=== PATIENT | female | born 1985 | race Caucasian/White ===

== ENCOUNTER 2021-05-26 05:33 | Inpatient (IN) | payer MEDICAID ==
[2021-05-20 12:14] LABS: ALBUMIN 3.7 G/DL (3.4-5.0); ALKALINE PHOSPHATASE 96 IU/L (46-116); BLOOD UREA NITROGEN 16 MG/DL (7-18); BUN/CREATININE RATIO 21.6 (6.6-38.0); CALCIUM 8.2 MG/DL (8.5-10.1); CHLORIDE 105 MMOL/L (99-107); CREATININE 0.74 MG/DL (0.40-0.90); PRE OP ALT 19 U/L (30-65); PRE OP ANION GAP 9 (8-16); PRE OP AST 11 U/L (10-37); PRE OP BILIRUB, TOTAL 0.3 MG/DL (0.0-1.0); PRE OP GLUCOSE 92 MG/DL (70-104); PRE OP POTASSIUM 4.3 MMOL/L (3.4-5.1); PRE OP SODIUM 141 MMOL/L (135-145); TOTAL CARBON DIOXIDE 26.7 MMOL/L (24-32); TOTAL PROTEIN 7.4 G/DL (6.4-8.2); eGFR 88 ML/MIN
[2021-05-20 12:17] LABS: BASOPHILS # (AUTO) 0.1 X10'3 (0-0.2); BASOPHILS % (AUTO) 1.6 % (0-1); EOSINOPHILS # (AUTO) 0.1 X10'3 (0-0.9); EOSINOPHILS % (AUTO) 1.4 % (0-6); LYMPHOCYTES # (AUTO) 1.6 X10'3 (1.1-4.8); LYMPHOCYTES % (AUTO) 34.4 % (21-51); MEAN CORPUSCULAR HEMOGLOBIN 20.6 PG (27.0-31.0); MEAN CORPUSCULAR HGB CONC 31.2 g/dL (33.0-36.5); MONOCYTES # (AUTO) 0.3 X10'3 (0-0.9); MONOCYTES % (AUTO) 6.7 % (2-12); NEUTROPHILS # (AUTO) 2.6 X10'3 (1.8-7.7); NEUTROPHILS % (AUTO) 55.9 % (42-75); PRE OP HEMATOCRIT 30.3 % (35.0-45.0); PRE OP PLATELET COUNT 341 X10'3 (140-440); RED BLOOD COUNT 4.59 X10'6 (4.20-5.60); RED CELL DISTRIBUTION WIDTH 21.2 % (11.5-14.5)
[2021-05-20 12:20] LABS: PRE OP HEMOGLOBIN 9.5 g/dL (12.0-16.0)
[2021-05-20 12:35] LABS: HCG SERUM QL NEGATIVE
[2021-05-20 12:42] LABS: ANISOCYTOSIS 3+; MICROCYTOSIS 2+; PLATELET ESTIMATE NORMAL
[2021-05-20 12:43] LABS: ELLIPTOCYTES 1+; POIKILOCYTOSIS 1+
[~2021-05-26] VITALS: Ht 170.2 cm; Wt 92.3 kg
[2021-05-26] VITALS (21 sets, daily range): BP systolic 102–147; BP diastolic 53–88
[~2021-05-26 05:33] MED LIST: FERR236T3 PO; MULT-1085 PO; OMEP-50 PO; ceFOXitin 2GM-NS 100mL ADDvant 100 ML IV ONE; famotidine 20mg tablet PO ONE; ringers solution, lacted 1,000 ML IV SCH
[2021-05-26] MEDS ORDERED: fentaNYL /PF 50mcg/ml 5ml ampule ONE (07:26)
[2021-05-26] MEDS ORDERED: midazolam 1 mg/ML 2ml injection ONE (07:26)
[2021-05-26] MEDS ORDERED: dexamethasone sod phosphate 4mg/ml inj. ONE (07:28)
[2021-05-26] MEDS ORDERED: LIDOcaine 2% (20mg/ml) 5ml vial ONE (07:28)
[2021-05-26] MEDS ORDERED: propofol inj 20 ML IV ONE (07:28)
[2021-05-26] MEDS ORDERED: vasoPRESSIN 20 units/ml inj. ONE (07:43)
[2021-05-26] MEDS ORDERED: rocuronium 10mg/ml inj IV ONE (07:53)
[2021-05-26] MEDS ORDERED: ondansetron/PF 4mg/2ml inj ONE (08:11)
[2021-05-26] MEDS ORDERED: ringers solution, lacted 1,000 ML IV SCH (08:50)
[2021-05-26] MEDS ORDERED: morphine 2 MG/ML inj. syringe IV PRN (08:50)
[2021-05-26] MEDS ORDERED: morphine 4 MG/ML inj SYRINge IV PRN (08:50)
[2021-05-26] MEDS ORDERED: ondansetron/PF 4mg/2ml inj IV PRN ×2 (08:50→10:40)
[2021-05-26] MEDS ORDERED: proCHLORperazine 10 MG/2 ml inj IV PRN (08:50)
[2021-05-26] MEDS ORDERED: meperidine/PF 25mg/ml syringe IV PRN ×2 (08:50)
[2021-05-26] MEDS ORDERED: CISatracurium **Bolus** 2 mg/ml inj IV PRN (09:00)
[2021-05-26] MEDS ORDERED: meperidine/PF 25mg/ml syringe ONE (09:58)
[2021-05-26] MEDS ORDERED: acetaminophen 1,000mg/100ml IV 100 ML IV ONE (10:16)
[2021-05-26] MEDS ORDERED: oxyCODONE/APAP 5-325mg tablet PO PRN ×2 (10:40)
[2021-05-26] MEDS: ringers solution, lacted 1,000 ML IV SCH ×2 (10:40→23:56)
[2021-05-26] MEDS ORDERED: CADD PCA waste documentation MC PRN (10:40)
[2021-05-26] MEDS ORDERED: naloxone 0.4 mg/ml inj IV PRN (10:40)
[2021-05-26] MEDS ORDERED: normal saline 500ML IV soln IV PRN (10:40)
[2021-05-26] MEDS ORDERED: diphenhydrAMINE 50 mg/ml inj IV PRN (10:40)
[2021-05-26] MEDS ORDERED: mag hydrox/Alum hydrox/simeth 30ml oral suspension PO PRN (10:40)
[2021-05-26] MEDS ORDERED: LORazepam 2 mg/ml vial IV PRN (10:40)
[2021-05-26] MEDS ORDERED: temazepam 15mg capsule PO PRN (10:40)
--- NOTE | 2021-05-26 10:47 | NUR ---
Received from OR via , accompanied by Anesthesiologist DR AGUILERA and report given by Anesthesiolgist.AWAKENS TO VOICE. VITALS STABLE. DRESSINGS DI. ROBERT PAIN. MARX WITH CLEAR URINE.
[2021-05-26] MEDS: meperidine/PF 25mg/ml syringe IV PRN ×2 (11:22→11:42)
[2021-05-26] MEDS: HYDROmorph./NS 0.2 mg/ml CADD 100 ML IV SCH ×7 (12:17→23:00)
[2021-05-26] MEDS: simethicone 80mg chew tab PO SCH ×2 (13:00→20:11)
--- NOTE | 2021-05-26 14:07 | NUR ---
Report called to receiving nurse. Transferred via BED Belongings . Special Issues communicated to receiving nurse. AWAKE AND ORIENTED. VITALS STABLE. DRESSINGS DI. STATES MILD ABD PAIN. TO SURGICAL RM 346B AT THIS TIME.
[2021-05-26] MEDS: ketorolac trometh. 30mg/ml inj. IV PRN (16:04)
--- NOTE | 2021-05-26 18:30 | NUR ---
Patient in room [facility]. I have received report from Lydia JACOBS and had the opportunity to ask questions and assume patient care.
--- NOTE | 2021-05-26 18:33 | NUR ---
Problems reprioritized. Patient report given, questions answered & plan of care reviewed with ARLENE Mina.
[2021-05-26] MEDS: docusate sod 100mg capsule PO SCH (20:11)
[2021-05-27] VITALS: BP 108/50
[2021-05-27] MEDS: HYDROmorph./NS 0.2 mg/ml CADD 100 ML IV SCH ×3 (01:00→05:00)
[2021-05-27] MEDS: ringers solution, lacted 1,000 ML IV SCH ×2 (02:40→10:40)
--- NOTE | 2021-05-27 06:17 | NUR ---
Problems reprioritized. Patient report given, questions answered & plan of care reviewed with Russell JACOBS.
--- NOTE | 2021-05-27 06:43 | NUR ---
Patient in room [facility] 346. I have received report from Keeley/Lucero JACOBS and had the opportunity to ask questions and assume patient care.
[2021-05-27 07:02] LABS: BASOPHILS % (AUTO) 0.4 % (0-1); EOSINOPHILS # (AUTO) 0.1 X10'3 (0-0.9); EOSINOPHILS % (AUTO) 0.7 % (0-6); HEMATOCRIT 24.7 % (35.0-45.0); HEMOGLOBIN 7.7 g/dl (12.0-16.0); LYMPHOCYTES # (AUTO) 2.2 X10'3 (1.1-4.8); LYMPHOCYTES % (AUTO) 29.6 % (21-51); MEAN CORPUSCULAR HEMOGLOBIN 20.8 PG (27.0-31.0); MEAN CORPUSCULAR HGB CONC 31.1 g/dL (33.0-36.5); MEAN CORPUSCULAR VOLUME 66.9 FL (78-98); MEAN PLATELET VOLUME 9.7 FL (7.4-10.4); MONOCYTES # (AUTO) 0.9 X10'3 (0-0.9); MONOCYTES % (AUTO) 11.5 % (2-12); NEUTROPHILS # (AUTO) 4.3 X10'3 (1.8-7.7); NEUTROPHILS % (AUTO) 57.8 % (42-75); PLATELET COUNT 241 X10'3 (140-440); RED BLOOD COUNT 3.69 X10'6 (4.20-5.60); RED CELL DISTRIBUTION WIDTH 19.6 % (11.5-14.5); WHITE BLOOD COUNT 7.5 X10'3 (4.5-11.0)
[2021-05-27 07:21] LABS: ALBUMIN 2.9 G/DL (3.4-5.0); ANION GAP 7 (8-16); BLOOD UREA NITROGEN 11 MG/DL (7-18); BUN/CREATININE RATIO 13.6 (6.6-38.0); CALCIUM 7.9 MG/DL (8.5-10.1); CHLORIDE 106 MMOL/L (99-107); CREATININE 0.81 MG/DL (0.40-0.90); GLUCOSE 93 MG/DL (70-104); POTASSIUM 3.7 MMOL/L (3.5-5.1); SODIUM 141 MMOL/L (135-145); TOTAL CARBON DIOXIDE 28.1 MMOL/L (24-32); eGFR 79 ML/MIN
[2021-05-27] MEDS: docusate sod 100mg capsule PO SCH (07:35)
[2021-05-27] MEDS: simethicone 80mg chew tab PO SCH ×2 (07:35→12:43)
[2021-05-27 08:00] VITALS: BP 118/52
[2021-05-27] MEDS: ketorolac trometh. 30mg/ml inj. IV PRN (10:38)
[2021-05-27 11:00] VITALS: BP 109/62
[2021-05-27 11:56] LABS: PLATELET ESTIMATE NORMAL
[2021-05-27 11:57] LABS: HYPOCHROMASIA 2+
[2021-05-27 11:58] LABS: ANISOCYTOSIS 2+; ELLIPTOCYTES 2+; MICROCYTOSIS 2+; SCHISTOCYTES 1+; TEAR DROP CELLS 1+
--- NOTE | 2021-05-27 14:55 | NUR ---
pt is A & O x4 and in no apparent distress. Pt verbalizes understanding of ALL DC orders and directions. Pt educated about SS of infection and pain management. pt instructed about following up with Dr Griffin and PCP. Pt already has all medications and follow up appointment.IV cath removed intact. Pt packed her belongings and was wheeled to the front where her pick her up.
== END 2021-05-27 14:55 | disposition home or self-care (01) | DRG 513 ==
LOC: PAS IN 05:33 → UNDOADMIN 05:33 → PAS IN 10:40 → SUR 3N 14:50 → PAS IN 14:50 → UNDODISIN 05-27 14:55
PROVIDERS: ADMIT Obstetrics & Gynecology; ATTEND Obstetrics & Gynecology
PROC: 0TNB0ZZ Release Bladder, Open Approach (ICD-10-PCS; 2021-05-26)
PROC: 0UT70ZZ Resection of Bilateral Fallopian Tubes, Open Approach (ICD-10-PCS; 2021-05-26)
PROC: 0TJB8ZZ Inspection of Bladder, Via Natural or Artificial Opening Endoscopic (ICD-10-PCS; 2021-05-26)
PROC: 0USG0ZZ Reposition Vagina, Open Approach (ICD-10-PCS; 2021-05-26)
PROC: 0UT90ZZ Resection of Uterus, Open Approach (ICD-10-PCS; principal; 2021-05-26 07:38)
DX: N92.0 Excessive and frequent menstruation with regular cycle (principal); K66.0 Peritoneal adhesions (postprocedural) (postinfection); N81.4 Uterovaginal prolapse, unspecified
CPT/HCPCS: 36415; 80048; 80053; 82948; 84703; 85008; 85025; 86885; 86900; 86901; A4355; A4618; A6250; A7000; C1758; G0378; J0131; J0694; J1100; J1170; J1885; J2001; J2175; J2250; J2405; J2704; J3010; J3490; J7030; J7120; U0003; U0005